=== PATIENT | female | born 1985 | race Caucasian/White ===

== ENCOUNTER 2021-07-03 02:14 | Outpatient (CLI) | payer OTHER | END 2021-07-03 23:59 | disposition critical access hospital (66) | LOC: EMS 02:14 | DX: O72.1 Other immediate postpartum hemorrhage (principal) | CPT/HCPCS: A0425; A0427 ==

== ENCOUNTER 2021-07-03 02:30 | Emergency (ER) | payer OTHER ==
--- NOTE | 2021-07-03 02:40 | ED Physician Documentation ---
PD HPI FEMALE - Stated complaint Stated Complaint: POSS RETAINED PLACENTA - History obtained from History obtained from: Patient, Other (student life coordinator (Elena Mares)) - History of Present Illness Timing - onset: Today (tonight (see narrative, below)) Pain level max: 3 Associated symptoms: Pelvic pain, Vaginal bleeding. No: Fever Contributing factors: Other (vaginal delivery at 9:10 PM tonight) OB-LPN OR MEDICAL ASSISTANT History: G (2), P (1), Miscarriage(s) - Additional information Additional information: BIBA. patient had vaginal delivery (39 weeks + (patient says she cannot remember exact days right now)) at [facility] at 9:10 PM tonight. The placenta was subsequently delivered and although the student life coordinator visualized what appeared to be an intact placenta, the patient had large amount of subsequent clots and ongoing vaginal bleeding. Pitocin drip was started and patient sent to [facility] for further evaluation. Product Marketing Specialist Suzan says she contacted the [facility] waste management recycling technician floor but was instructed to have patient come to [facility] ED. EMS reports that there were a few readings of systolic blood pressures in the 80 s prior to their arrival (by birthing center staff), but that patient has been normotensive on their arrival and throughout transport. Patient says she feels the bleeding has slowed significantly Review of Systems Constitutional: denies: Fever, Chills, Sweats Cardiac: reports: Reviewed and negative Respiratory: reports: Reviewed and negative GI: reports: Abdominal Pain (pelvic), Abdominal Swelling. denies: Nausea, Vomiting PD PAST MEDICAL HISTORY - Past Medical History Past Medical History: No - Allergies Allergies/Adverse Reactions: Allergies Allergy/AdvReac Type Severity Reaction Status Date / Time No Known Drug Allergies Allergy Verified 07/03/21 04:05 PD ED PE NORMAL - Vitals Vital signs reviewed: Yes - General General: Alert and oriented X 3, No acute distress, Well developed/nourished - Neck Neck: Supple, no meningeal sign - Cardiac Cardiac: RRR, No murmur - Respiratory Respiratory: No respiratory distress, Clear bilaterally - Abdomen Abdomen: Soft, Other (mild TTP across lower abdomen and anterior pelvis; pelvis and abdomen are distended ) Results - Vitals Vitals: Oxygen O2 Source Room air - Labs Labs: Laboratory Tests 07/03/21 07/03/21 07/03/21 02:50 02:50 02:50 WBC 16.9 H RBC 4.14 L Hgb 11.9 L Hct 35.0 L MCV 84.5 MCH 28.7 MCHC 34.0 RDW 13.3 Plt Count 219 MPV 9.5 Neut # (Auto) Not Reportable Lymph # (Auto) Not Reportable [place] # (Auto) Not Reportable Eos # (Auto) Not Reportable Baso # (Auto) Not Reportable Absolute Nucleated RBC Not Reportable Total Counted 100 Band Neuts % (Manual) 0 Abnorm Lymph % (Manual) 0 Nucleated RBC % Not Reportable Neutrophils # (Manual) 15.2 H Lymphocytes # (Manual) 1.0 L Monocytes # (Manual) 0.7 Eosinophils # (Manual) 0.0 Basophils # (Manual) 0.0 Differential Comment MANUAL DIFFERENTIAL WBC Morphology NORMAL APPEARANCE Platelet Estimate NORMAL (130-450,000) Platelet Morphology NORMAL APPEARANCE RBC Morph Micro Appear NORMAL APPEARANCE Fibrinogen 389 Sodium 125 L Potassium 3.6 Chloride 93 L Carbon Dioxide 21 Anion Gap 11.0 BUN 5 L Creatinine 0.4 Estimated GFR (MDRD) 183 Glucose 142 H Calcium 9.0 - Rads (name of study) pelvic US Radiology: Prelim report reviewed, See rad report PD MEDICAL DECISION MAKING - ED course Complexity details: reviewed results, re-evaluated patient, considered differential, d/w patient ED course: case d/w Dr. Arechiga; recomends bladder scan and this shows >999 ml. A castro was then placed, immediate return of 800cc clear yellow urine and the pelvic and abdominal distention nearly resolved, and subsequently resolved completely during remainder of ED stay as there was another 1200cc clear, yellow urine output. No emergently concerning findings on blood tests (hyponatremia noted, mild leukocytosis, mildly low h/h which would be c/w 3rd trimester ). patient had no further significant vaginal bleeding during her ED stay. No clear evidence of retained POC on US. I reviewed results with patient as well as over the phone with Dr. Arechiga; Dr. Arechiga recommends keeping castro in and d/c home, return if worse, f/u 1-2 days for removal of catheter with post-residual trial. Departure - Departure Disposition: 01 Home, Self Care Clinical Impression: Urinary retention bleeding Qualifiers: hemorrhage type: unspecified Qualified Code(s): O72.1 - Other immediate hemorrhage Condition: Good Instructions: ED Catheter Care Castro, ED Retention Urinary Female Follow-Up: Maya Oconnor MD [Provider Admit Priv/Credential] - (1-2 days for catheter removal) Discharge Date/Time: 07/03/21 06:56
[2021-07-03 02:57] LABS: BASOPHILS % (AUTO) 0.2 %; EOSINOPHILS % (AUTO) 0.7 %; HGB - HEMOGLOBIN 11.9 g/dL (12.0-16.0); LYMPHOCYTES % (AUTO) 3.8 %; MEAN CORPUSCULAR HEMOGLOBIN 28.7 pg (27.0-31.0); MEAN CORPUSCULAR VOLUME 84.5 fL (81.0-99.0); MEAN PLATELET VOLUME 9.5 fL (7.9-10.8); NEUTROPHILS % (AUTO) 87.8 %; PLT - PLATELET COUNT 219 10^3/uL (130-450); RED BLOOD COUNT 4.14 10^6/uL (4.20-5.40); RED CELL DISTRIBUTION WIDTH 13.3 % (12.0-15.0); WHITE BLOOD COUNT 16.9 x10^3/uL (4.8-10.8)
[2021-07-03 02:58] LABS: ABNORMAL LYMPHS % (MANUAL) 0 %; BAND NEUTROPHILS % (MANUAL) 0 %
[2021-07-03] MEDS ORDERED: miSOPROStoL 200 MCG TABLET BC STA (03:02)
[2021-07-03 03:07] LABS: CREATININE 0.4 mg/dL (0.4-1.0); POTASSIUM 3.6 mmol/L (3.5-5.0)
[2021-07-03 03:15] LABS: DIFFERENTIAL COMMENT MANUAL DIFFERENTIAL; LYMPHOCYTES % (MANUAL) 6 %; MONOCYTES # (MANUAL) 0.7 10^3/uL (0.0-1.0); NEUTROPHILS # (MANUAL) 15.2 10^3/uL (1.5-6.6); PLATELET ESTIMATE, MANUAL NORMAL (130-450,000) (NORMAL); PLATELET MORPHOLOGY NORMAL APPEARANCE (NORMAL); RBC MORPHOLOGY (MULTIPLE) NORMAL APPEARANCE (NORMAL); WBC MORPHOLOGY (MULTIPLE) NORMAL APPEARANCE (NORMAL)
[2021-07-03 06:51] VITALS: BP 105/67
--- NOTE | 2021-07-03 08:20 | Ultrasound Report ---
PROCEDURE: Pelvic Complete INDICATIONS: post-vaginal delivery, bleeding and high fundus TECHNIQUE: Real-time transabdominal scanning was performed of the pelvic organs, with image documentation. COMPARISON: None FINDINGS: Uterus: uterus is anteverted and slightly retroflexed measuring 32.2 x 10.5 x 11.7 cm. The endometrium is heterogeneous in appearance and thickened with slight increased vasculature measuring up to 23.5 mm in thickness. Ovaries: Right ovary measures 2.0 x 1.8 x 1.6 cm. The left ovary measures 3.0 x 1.3 x 2.6 cm. No marta picious cystic or solid mass. Other: No free pelvic fluid. IMPRESSION: Heterogeneous complex appearance of a thickened endometrium measuring up to 23.5 mm. Retained product s of conception not excluded. uterus. Unremarkable appearance of the ovaries. Agree with preliminary report. Reviewed by: Av Lock DO on 07/03/2021 7:19 AM ABDULLAHI Approved by: Av Lock DO on 07/03/2021 7:19 AM ABDULLAHI Station ID: [id number]
== END 2021-07-03 06:56 | disposition home or self-care (01) ==
LOC: ED 02:30
DX: O72.1 Other immediate postpartum hemorrhage (principal); R33.9 Retention of urine, unspecified
CPT/HCPCS: 36415; 80048; 82947; 85025; 85384; 99283